=== PATIENT | male | born 1990 | race Caucasian/White ===

== ENCOUNTER 2016-07-11 11:58 | Observation (INO) | payer OTHER ==
[~2016-07-11] VITALS: Ht 193 cm; Wt 138.4 kg
[2016-07-11 13:13] LABS: HEMOGLOBIN 17.6 gm/dl (14.0-17.5); RED BLOOD COUNT 5.65 M/UL (4.20-5.50); WHITE BLOOD COUNT 14.6 K/UL (4.5-11.0)
[2016-07-11 14:16] LABS: BUN/CREATININE RATIO 10 (0-10)
[2016-07-11] MEDS ORDERED: GLUCOPHAGE1000 MG PO (23:03)
[2016-07-12 06:10] LABS: HEMOGLOBIN 15.7 gm/dl (14.0-17.5); RED BLOOD COUNT 5.1 M/UL (4.20-5.50); WHITE BLOOD COUNT 13.7 K/UL (4.5-11.0)
[2016-07-12 06:23] LABS: BUN/CREATININE RATIO 10 (0-10)
[2016-07-13] MEDS ORDERED: HYDROCODON-ACE1 EAC2 PO (13:23)
[2016-07-13] MEDS ORDERED: COLACE 100MG C100 MG PO (13:24)
== END 2016-07-13 16:20 | disposition home or self-care (01) ==
LOC: ER1 11:58 → M/S 18:00 → ZEROF 18:00 → M/S 20:47
PROVIDERS: Preventive Medicine Occupational Medicine; ADMIT Surgery
PROC: BF03YZZ Plain Radiography of Gallbladder and Bile Ducts using Other Contrast (ICD-10-PCS; 2016-07-12)
PROC: 0FT44ZZ Resection of Gallbladder, Percutaneous Endoscopic Approach (ICD-10-PCS; principal; 2016-07-12 12:15)
DX: K80.12 Calculus of gallbladder with acute and chronic cholecystitis without obstruction (principal); E11.9 Type 2 diabetes mellitus without complications; F17.210 Nicotine dependence, cigarettes, uncomplicated; Z79.899 Other long term (current) drug therapy; Z90.89 Acquired absence of other organs; Z88.0 Allergy status to penicillin
CPT/HCPCS: 36415; 47531; 76705; 80053; 82150; 82962; 83690; 85025; 86140; 96361; 96365; 96366; 96375; 96376; 99285; C9113; G0378; J0295; J1200; J1956; J2250; J2270; J2405; J2710; J3010; J3480; J7030; J7050; J7120; Q9962